=== PATIENT | female | born 1930 | race Caucasian/White ===

== ENCOUNTER 2016-08-02 22:35 | Emergency (ER) | payer MEDICARE, BC ==
[2016-08-02 22:55] VITALS: RESP 18; TEMP 97.7
[2016-08-02 23:18] LABS: BASOPHILS % (AUTO) 1 % (0-3); EOSINOPHILS % (AUTO) 2 % (0-9); HEMATOCRIT 37 % (35-47); MEAN CORPUSCULAR HGB CONC 34.6 gm/dl (32.0-36.0); MEAN CORPUSCULAR VOLUME 87 fL (81-99); MONOCYTES % (AUTO) 8.6 % (0-12); NEUTROPHILS % (AUTO) 67.8 % (37-80)
[2016-08-02 23:26] LABS: CALCIUM 9.3 mg/dl (8.5-10.1); POTASSIUM 3.3 mMol/L (3.5-5.1)
[2016-08-02 23:34] VITALS: PULSE 58
[2016-08-03 00:45] VITALS: BP 141/51; O2SAT 97
== END 2016-08-03 | DRG 103 ==
LOC: ED 22:35
DX: R51 Headache (principal); R40.2412 Glasgow coma scale score 13-15, at arrival to emergency department; W19.XXXA Unspecified fall, initial encounter
CPT/HCPCS: 36415; 70450; 80048; 85025; 99284

== ENCOUNTER 2016-08-31 13:21 | Emergency (ER) | payer MEDICARE, BC ==
[2016-08-31 13:42] VITALS: RESP 18; TEMP 98.1
[2016-08-31 14:05] LABS: BASOPHILS % (AUTO) 1 % (0-3); EOSINOPHILS % (AUTO) 2 % (0-9); HEMATOCRIT 38 % (35-47); MEAN CORPUSCULAR HGB CONC 34.5 gm/dl (32.0-36.0); MEAN CORPUSCULAR VOLUME 87 fL (81-99); MONOCYTES % (AUTO) 7.1 % (0-12); NEUTROPHILS % (AUTO) 65.9 % (37-80)
[2016-08-31 14:11] LABS: APPEARANCE,URINE Clear; BILIRUBIN,URINE NEGATIVE (NEGATIVE); COLOR,URINE Yellow; GLUCOSE, URINE (UA) 2+ (NEGATIVE); KETONES,URINE NEGATIVE (NEGATIVE); LEUKOCYTE ESTERASE ,URINE TRACE (NEGATIVE); NITRATE,URINE NEGATIVE (NEGATIVE); OCCULT BLOOD,URINE NEGATIVE (NEG-TRACE); PH,URINE 5.5; UROBILINOGEN,URINE 0.2 (0.2-1.0 EU)
[2016-08-31] MEDS ORDERED: SODIUM CHLORIDE 0.9% 500 ML 500 ML IV ONE (14:16)
[2016-08-31] MEDS ORDERED: SODIUM CHLORIDE 0.9% FLUSH 10 ML SOL IV PRN (14:16)
[2016-08-31 14:23] LABS: ALBUMIN 2.6 gm/dl (3.4-5.0); ALT 37 IU/L (14-63); CALCIUM 9.1 mg/dl (8.5-10.1); GLOM FILT RATE 39 mL/min (>60); POTASSIUM 3.7 mMol/L (3.5-5.1); SODIUM 135 mMol/L (136-145)
[2016-08-31 14:24] LABS: RBC,URINE 0-2 (0-3AV/HPF)
[2016-08-31 14:33] VITALS: O2SAT 98
[2016-08-31 14:48] VITALS: BP 131/57; PULSE 66
== END 2016-08-31 15:32 | DRG 948 ==
LOC: ED 13:21
DX: R53.1 Weakness (principal); E11.65 Type 2 diabetes mellitus with hyperglycemia; F03.90 Unspecified dementia, unspecified severity, without behavioral disturbance, psychotic disturbance, mood disturbance, and anxiety; I50.9 Heart failure, unspecified
CPT/HCPCS: 36415; 80053; 81001; 83880; 84484; 85025; 87088; 96365; 99282; 99284

== ENCOUNTER 2017-10-14 14:57 | Emergency (ER) | payer MEDICARE, BC ==
[2017-10-14 15:07] VITALS: TEMP 98.9
[2017-10-14 15:14] VITALS: RESP 18
[2017-10-14 16:22] LABS: APPEARANCE,URINE Cloudy; BILIRUBIN,URINE NEGATIVE (NEGATIVE); COLOR,URINE Yellow; GLUCOSE, URINE (UA) TRACE (NEGATIVE); KETONES,URINE NEGATIVE (NEGATIVE); LEUKOCYTE ESTERASE ,URINE 3+ (NEGATIVE); NITRATE,URINE NEGATIVE (NEGATIVE); OCCULT BLOOD,URINE TRACE LYSED (NEG-TRACE); UROBILINOGEN,URINE 0.2 (0.2-1.0 EU)
[2017-10-14 16:48] LABS: BACTERIA 1+ (< 1+); CRYSTALS NEGATIVE (0-3 AVE/HPF); EPITHELIAL CELLS 0-3 (SQUAMOUS); RBC,URINE 0-2 (0-3AV/HPF)
[2017-10-14] MEDS ORDERED: SODIUM CHLORIDE 0.9% 50 ML 25 ML IV PRN (17:04)
[2017-10-14] MEDS ORDERED: CEFTRIAXONE 1 GM PDS 1 GM in SODIUM CHLORIDE 0.9% 50 ML 50 ML IV ONE (17:04)
[2017-10-14] MEDS ORDERED: CEFTRIAXONE 1 GM PDS ONE (17:09)
[2017-10-14 19:47] VITALS: BP 153/71; PULSE 58; O2SAT 97
== END 2017-10-14 19:40 | DRG 690 ==
LOC: ED 14:57
DX: N34.2 Other urethritis (principal); B96.4 Proteus (mirabilis) (morganii) as the cause of diseases classified elsewhere; T14.8XXA Other injury of unspecified body region, initial encounter; W19.XXXA Unspecified fall, initial encounter; F03.90 Unspecified dementia, unspecified severity, without behavioral disturbance, psychotic disturbance, mood disturbance, and anxiety
CPT/HCPCS: 72192; 73521; 81001; 87077; 87088; 87186; 96365; 99284; J0696

== ENCOUNTER 2018-10-11 21:21 | Emergency (ER) | payer MEDICARE, BC ==
[2018-10-11] MEDS ORDERED: DEXTROSE 50% 1 VIAL SOL IV ONE ×2 (21:40→21:41)
[2018-10-11] MEDS ORDERED: DEXTROSE/SALINE 0.9% 1,000 ML IV SCH (22:00)
[2018-10-11 22:05] LABS: BASOPHILS % (AUTO) 1 % (0-3); EOSINOPHILS % (AUTO) 2 % (0-9); HEMATOCRIT 35 % (35-47); HEMOGLOBIN 11.7 gm/dl (12.0-15.5); MEAN CORPUSCULAR HEMOGLOBIN 30.7 pg (27.0-32.0); MEAN CORPUSCULAR HGB CONC 33.9 gm/dl (32.0-36.0); MEAN CORPUSCULAR VOLUME 91 fL (81-99); MONOCYTES % (AUTO) 9.3 % (0-12); NEUTROPHILS % (AUTO) 73.3 % (37-80)
[2018-10-11 22:19] LABS: ALBUMIN 2.8 gm/dl (3.4-5.0); BILIRUBIN,TOTAL 0.2 mg/dl (0.2-1.0); CALCIUM 8.7 mg/dl (8.5-10.1); CARBON DIOXIDE 31.3 mEq/L (21-32); CREATININE 1.24 mg/dl (0.60-1.00); POTASSIUM 3.3 mMol/L (3.5-5.1); TOTAL PROTEIN 6.5 gm/dl (6.4-8.2)
[2018-10-11 22:50] LABS: APPEARANCE,URINE Cloudy; BILIRUBIN,URINE NEGATIVE (NEGATIVE); COLOR,URINE Yellow; GLUCOSE, URINE (UA) NEGATIVE (NEGATIVE); KETONES,URINE NEGATIVE (NEGATIVE); LEUKOCYTE ESTERASE ,URINE 3+ (NEGATIVE); NITRATE,URINE NEGATIVE (NEGATIVE); OCCULT BLOOD,URINE NEGATIVE (NEG-TRACE); UROBILINOGEN,URINE 0.2 (0.2-1.0 EU)
[2018-10-11 22:59] LABS: BACTERIA 4+ (< 1+); CRYSTALS NEGATIVE (0-3 AVE/HPF); EPITHELIAL CELLS 0-4 (SQUAMOUS); RBC,URINE 0-2 (0-3AV/HPF); WBC,URINE 30-50 (0-5AV/HPF)
[2018-10-11 23:18] VITALS: RESP 20
[2018-10-11] MEDS ORDERED: POTASSIUM CHLORIDE 10 MEQ TER ONE (23:27)
[2018-10-11] MEDS ORDERED: POTASSIUM CHLORIDE 10 MEQ TER PO ONE (23:27)
[2018-10-11] MEDS ORDERED: LEVOFLOXACIN 25 MG/ML 500 MG in SODIUM CHLORIDE 0.9% 100 ML 100 ML IV ONE (23:28)
[2018-10-11] MEDS ORDERED: LEVOFLOXACIN 500 MG TAB PO ONE (23:39)
[2018-10-11] MEDS ORDERED: LEVOFLOXACIN 500 MG TAB ONE (23:39)
[2018-10-12 00:35] VITALS: O2SAT 94
[2018-10-12] MEDS ORDERED: SODIUM CHLORIDE 0.9% 1000ML 1,000 ML IV ONE (00:46)
[2018-10-12 01:58] VITALS: BP 130/53; PULSE 69; TEMP 96.7
== END 2018-10-12 02:37 | disposition home or self-care (01) | DRG 641 ==
LOC: ED 21:21
DX: E16.2 Hypoglycemia, unspecified (principal); N34.2 Other urethritis; Z79.4 Long term (current) use of insulin; E11.9 Type 2 diabetes mellitus without complications
CPT/HCPCS: 36415; 80053; 81001; 82962; 85025; 87077; 87088; 87186; 96365; 96366; 96374; 99283; 99285; A9270-GY